=== PATIENT | female | born 1975 | race Caucasian/White ===

== ENCOUNTER 2018-08-13 13:05 | Emergency (ER) | payer MEDICAID ==
[~2018-08-13] VITALS: Ht 167.6 cm; Wt 78.1 kg
[~2018-08-13 13:05] MED LIST: ACID1TAB7 PO; AMPI500C2 PO; CHLO25CA9 PO; DIAZ2TAB PO; FOLI-17 PO; LANS1COM3 PO; LORA-446 PO; LORA2TAB99 PO; MAGN400T7 PO; METR500T PO; MORP30TA3 PO; MULT-484 PO; OMEP-110 PO; OXYC5TAB3 PO; PANT40TA3 PO; POLY17PO5 PO; SUCR1ORA11 PO; THIA100T67 PO; TOPI25TA32 PO; TRAZ50TA66 PO; ZIPR20CA2 PO
--- NOTE | 2018-08-13 13:36 | NUR ---
LABS - US DELAY
[2018-08-13 13:56] LABS: MEAN CORPUSCULAR HEMOGLOBIN 30.6 pg (27.0-34.8); MEAN CORPUSCULAR HGB CONC 33.4 g/dL (32.4-35.8); MEAN CORPUSCULAR VOLUME 91.4 fL (80-100); MEAN PLATELET VOLUME 8.3 fL (7.4-10.4); PLATELET COUNT 276 x10^3/uL (130-400); RED BLOOD COUNT 4.42 x10^6/uL (3.82-5.3); RED CELL DISTRIBUTION WIDTH 22.3 % (9.6-15.2)
[2018-08-13 14:06] LABS: ALBUMIN 3.5 g/dL (3.4-5.0); ANION GAP 11 mmol/L (5-15); CALCIUM 8.8 mg/dL (8.5-10.1); CHLORIDE 111 mmol/L (98-107)
[2018-08-13 14:09] LABS: ALANINE AMINOTRANSFERASE 24 U/L (12-78); ALKALINE PHOSPHATASE 85 U/L (45-117); BILIRUBIN,TOTAL 0.6 mg/dL (0.2-1.0); CREATININE 0.83 mg/dL (0.55-1.02); TOTAL PROTEIN 7.9 g/dL (6.4-8.2)
--- NOTE | 2018-08-13 14:18 | NUR ---
FROM LOBBY TO ROOM AT THIS TIME
[2018-08-13 14:29] LABS: MD YES
[2018-08-13 14:31] LABS: BASOS% (MANUAL) 2 % (0-1); LYMPH#(MANUAL) 1.43 x10^3/uL (1-3.4); LYMPHS% (MANUAL) 28 % (22-44); MONOS#(MANUAL) 0.26 x10^3/uL (0.3-2.7); MONOS% (MANUAL) 5 % (2-9); SEG#(MANUAL) 3.32 x10^3/uL (1.8-6.8); SEGS% (MANUAL) 65 % (42-75)
[2018-08-13 14:33] LABS: ANISOCYTOSIS 1+
[2018-08-13 14:34] LABS: <PLATELET ESTIMATE> ADEQUATE; <PLT MORPHOLOGY> NORMAL PLT MORPH
--- NOTE | 2018-08-13 14:35 | NUR ---
FIRST CONTANCT WITH PT: Pt aware of need of urine sample. Pt unable to provide at this time. Pt c/o RUQ and epigastric pain. Pt states her last drink was 2 days ago and she "sees shadows that might not be there" Pt guarding abdomen and resting on gurney. Pt connected to all monitors. EDPA aware.
[2018-08-13] MEDS ORDERED: KETOROLAC 30 MG/1 ML IVPush ONE (15:00)
[2018-08-13] MEDS ORDERED: LORazepam 2 MG/ML, 1ML IVPush ONE (15:00)
[2018-08-13] MEDS ORDERED: ONDANSETRON 2MG/ML, 2ML IVPush ONE (15:00)
[2018-08-13] MEDS ORDERED: FAMOTIDINE 20 MG/2 ML IVP ONE (15:00)
[2018-08-13] MEDS ORDERED: LORazepam 2 MG/ML, 1ML ONE (15:11)
[2018-08-13] MEDS ORDERED: ONDANSETRON 2MG/ML, 2ML ONE (15:11)
[2018-08-13] MEDS ORDERED: FAMOTIDINE 20 MG/2 ML ONE (15:11)
[2018-08-13] MEDS ORDERED: KETOROLAC 30 MG/1 ML ONE (15:11)
--- NOTE | 2018-08-13 15:40 | NUR ---
Provided medications per EMAR. Pt requesting food and water. Pt aware of need of urine sample for UA. Pt requesting water in order to pee.
[2018-08-13] MEDS ORDERED: SODIUM CHLORIDE FLUSH 10ML SYR IVF ONE (16:00)
--- NOTE | 2018-08-13 16:36 | NUR ---
Pt sleeping on gurney. ANGEL. Pt unable to provide urine sample.
[2018-08-13 17:09] LABS: HCG UR SG 1.028 (1.003-1.030); MICROSCOPIC NOT IND
[2018-08-13 17:14] LABS: CULTURE INDICATED? NO
--- NOTE | 2018-08-13 19:06 | NUR ---
Patient given discharge instructions and they have confirmed that they understand the instructions. Patient ambulatory with steady gait. Pt left with all personal belongings, discharge paperwork, and prescription.
[2018-08-13 19:07] VITALS: BP 125/68
== END 2018-08-13 19:12 | disposition home or self-care (01) ==
LOC: ED 18:34
DX: K85.20 Alcohol induced acute pancreatitis without necrosis or infection (principal); F10.229 Alcohol dependence with intoxication, unspecified
CPT/HCPCS: 36415; 76700; 80053; 80307; 81003; 81025; 83690; 85025; 96374; 96375; 99284; J1885; J2060; J2405; J3490

== ENCOUNTER 2019-01-23 16:00 | Inpatient (IN) | payer MEDICAID ==
[~2019-01-23] VITALS: Ht 167.6 cm; Wt 70.0 kg
--- NOTE | 2019-01-23 16:10 | NUR ---
gum worker called, message left.
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
[2019-01-23] MEDS ORDERED: SODIUM CHLORIDE FLUSH 10ML SYR IVF ONE (16:30)
[2019-01-23] MEDS ORDERED: SODIUM CHLORIDE 0.9% 1,000ML IVBOLUS ONE ×2 (16:30→20:00)
[2019-01-23] MEDS ORDERED: LORazepam 2 MG/ML, 1ML IVPush ONE ×2 (16:30→20:00)
[2019-01-23] MEDS ORDERED: ONDANSETRON 2MG/ML, 2ML IVPush ONE (16:30)
[2019-01-23] MEDS ORDERED: MORPHINE SULFATE 4 MG/ML, 1ML ONE (16:32)
[2019-01-23] MEDS ORDERED: LORazepam 2 MG/ML, 1ML ONE ×2 (16:32→19:34)
[2019-01-23] MEDS: MORPHINE SULFATE 4 MG/ML, 1ML IVPush PRN (16:35)
--- NOTE | 2019-01-23 17:07 | NUR ---
Patient medicated as ordered and documented for 10/10 left upper quadrant abdominal pain. Right wrist IV by EMS was infiltrated on assessment and discontinued with catheter tip intact. Supplemental oxygen applied via nasal cannula @ 2 LPM after pain medication administration. nutrition services worker at bedside.
--- NOTE | 2019-01-23 17:20 | NUR ---
RECEIVED REPORT FROM CHANDRA KAUR AT BEDSIDE.
[2019-01-23 17:31] LABS: ALANINE AMINOTRANSFERASE 25 U/L (12-78); ALBUMIN 3.8 g/dL (3.4-5.0); ANION GAP 14 mmol/L (5-15); CALCIUM 8.5 mg/dL (8.5-10.1); CHLORIDE 104 mmol/L (98-107); CREATININE 0.76 mg/dL (0.55-1.02)
--- NOTE | 2019-01-23 17:35 | NUR ---
NATASHA AT BEDSIDE. PT C/O NAUSEA STILL AFTER ATIVAN. WILL NOTIFY DR. CISNEROS.
[2019-01-23 17:36] LABS: ALKALINE PHOSPHATASE 84 U/L (45-117); BILIRUBIN,TOTAL 0.4 mg/dL (0.2-1.0); TOTAL PROTEIN 7.8 g/dL (6.4-8.2)
[2019-01-23 17:39] LABS: BASOPHILS # (AUTO) 0.02 x10^3/uL (0-0.1); BASOPHILS % (AUTO) 0 % (0-1); EOSINOPHILS % (AUTO) 0 % (1-7); LYMPHOCYTES # (AUTO) 0.93 x10^3/uL (1-3.4); LYMPHOCYTES % (AUTO) 10 % (22-44); MD NO; MEAN CORPUSCULAR HEMOGLOBIN 32.1 pg (27.0-34.8); MEAN CORPUSCULAR HGB CONC 33.4 g/dL (32.4-35.8); MEAN PLATELET VOLUME 7.4 fL (7.4-10.4); MONOCYTES # (AUTO) 0.53 x10^3/uL (0.2-0.8); MONOCYTES % (AUTO) 6 % (2-9); NEUTROPHILS # (AUTO) 7.69 x10^3/uL (1.8-6.8); NEUTROPHILS % (AUTO) 84 % (42-75); PLATELET COUNT 519 x10^3/uL (130-400); RED BLOOD COUNT 4.18 x10^6/uL (3.82-5.3); RED CELL DISTRIBUTION WIDTH 19.5 % (9.6-15.2)
--- NOTE | 2019-01-23 17:59 | NUR ---
PT TO CT.
--- NOTE | 2019-01-23 18:20 | NUR ---
REPORT TO BRYANNA TORRES FOR LUNCH BREAK.
[2019-01-23] MEDS ORDERED: PROMETHAZINE 25 MG/ML, 1ML IM ONE (18:30)
[2019-01-23] MEDS ORDERED: PROMETHAZINE 25 MG/ML, 1ML ONE (18:40)
--- NOTE | 2019-01-23 19:20 | NUR ---
PT TO RESTROOM WITH STEADY GAIT FOR UA.
[2019-01-23] MEDS ORDERED: KETOROLAC 30 MG/1 ML IVPush ONE (19:30)
[2019-01-23] MEDS ORDERED: KETOROLAC 30 MG/1 ML ONE (19:33)
--- NOTE | 2019-01-23 19:42 | NUR ---
PT 'S HR INTO THE 1300S AFTER RESTROOM AND C/O MORE PAIN. DR. CISNEROS AWARE AND PT MEDICATED ORDERED.
[2019-01-23 19:59] LABS: MICROSCOPIC INDICATED
[2019-01-23 20:03] LABS: CULTURE INDICATED? YES
--- NOTE | 2019-01-23 20:35 | NUR ---
PT TO BE ADMITTED FOR PANCREATITIS, ALCOHOL WITHDRAWAL. VSS.
[2019-01-23 21:22] VITALS: BP 151/95
[2019-01-23] MEDS ORDERED: BISACODYL 10 MG SUPP PR PRN (21:30)
[2019-01-23] MEDS ORDERED: ACETAMINOPHEN 325 MG TABLET PO PRN (21:30)
[2019-01-23] MEDS ORDERED: ONDANSETRON 2MG/ML, 2ML IVPush PRN (21:30)
[2019-01-23] MEDS: morphine SULFATE 10 MG/ML, 1ML IVPush PRN (21:52)
[2019-01-23] MEDS: LACTATED RINGERS 1,000 ML IV SCH (22:15)
[2019-01-24] MEDS: LORazepam 2 MG/ML, 1ML IVPush PRN ×5 (00:06→22:12)
[2019-01-24] MEDS: MORPHINE SULFATE 4 MG/ML, 1ML IVPush PRN (01:49)
[2019-01-24 01:58] VITALS: BP 139/89
[2019-01-24] MEDS: LACTATED RINGERS 1,000 ML IV SCH (04:39)
[2019-01-24] MEDS: morphine SULFATE 10 MG/ML, 1ML IVPush PRN ×6 (04:41→23:09)
[2019-01-24 05:53] LABS: BASOPHILS # (AUTO) 0.02 x10^3/uL (0-0.1); BASOPHILS % (AUTO) 0 % (0-1); EOSINOPHILS # (AUTO) 0.01 x10^3/uL (0-0.4); EOSINOPHILS % (AUTO) 0 % (1-7); LYMPHOCYTES # (AUTO) 0.63 x10^3/uL (1-3.4); LYMPHOCYTES % (AUTO) 9 % (22-44); MD NO; MEAN CORPUSCULAR HEMOGLOBIN 31.3 pg (27.0-34.8); MEAN CORPUSCULAR HGB CONC 32.9 g/dL (32.4-35.8); MEAN CORPUSCULAR VOLUME 95.1 fL (80-100); MEAN PLATELET VOLUME 6.6 fL (7.4-10.4); MONOCYTES # (AUTO) 0.39 x10^3/uL (0.2-0.8); MONOCYTES % (AUTO) 5 % (2-9); NEUTROPHILS # (AUTO) 6.38 x10^3/uL (1.8-6.8); NEUTROPHILS % (AUTO) 86 % (42-75); PLATELET COUNT 345 x10^3/uL (130-400); RED BLOOD COUNT 3.51 x10^6/uL (3.82-5.3); RED CELL DISTRIBUTION WIDTH 19.5 % (9.6-15.2)
[2019-01-24 06:04] LABS: ALANINE AMINOTRANSFERASE 27 U/L (12-78); ALBUMIN 3.1 g/dL (3.4-5.0); ANION GAP 12 mmol/L (5-15); CALCIUM 7.8 mg/dL (8.5-10.1); CHLORIDE 111 mmol/L (98-107); CREATININE 0.67 mg/dL (0.55-1.02)
[2019-01-24 06:07] LABS: ALKALINE PHOSPHATASE 74 U/L (45-117); BILIRUBIN,TOTAL 0.6 mg/dL (0.2-1.0); TOTAL PROTEIN 6.2 g/dL (6.4-8.2)
[2019-01-24] MEDS: D5%-0.45% NACL 1,000 ML IV SCH ×2 (07:30→17:17)
[2019-01-24] MEDS: THIAMINE 100MG TABLET PO SCH ×2 (07:48→19:57)
[2019-01-24] MEDS: FOLIC ACID 1 MG TABLET PO SCH (07:48)
[2019-01-24] MEDS: MULTIVITAMINS/MINERALS TABLET PO SCH (07:48)
[2019-01-24 08:47] VITALS: BP 144/97
[2019-01-24] MEDS: DIAZEPAM 5 MG TABLET PO PRN ×2 (13:05→19:57)
[2019-01-24 19:18] VITALS: BP 142/91
[2019-01-24] MEDS: ENOXAPARIN 40 MG/0.4 ML SQ SCH (19:57)
[2019-01-25] MEDS: morphine SULFATE 10 MG/ML, 1ML IVPush PRN ×6 (02:00→22:08)
[2019-01-25] MEDS: D5%-0.45% NACL 1,000 ML IV SCH ×3 (02:00→19:52)
[2019-01-25 02:15] VITALS: BP 135/88
[2019-01-25] MEDS: LORazepam 2 MG/ML, 1ML IVPush PRN ×2 (04:39→12:28)
[2019-01-25 05:08] LABS: BASOPHILS # (AUTO) 0.01 x10^3/uL (0-0.1); BASOPHILS % (AUTO) 0 % (0-1); EOSINOPHILS # (AUTO) 0.06 x10^3/uL (0-0.4); EOSINOPHILS % (AUTO) 1 % (1-7); LYMPHOCYTES # (AUTO) 0.97 x10^3/uL (1-3.4); LYMPHOCYTES % (AUTO) 21 % (22-44); MD NO; MEAN CORPUSCULAR HGB CONC 33.2 g/dL (32.4-35.8); MEAN CORPUSCULAR VOLUME 96.5 fL (80-100); MEAN PLATELET VOLUME 7.1 fL (7.4-10.4); MONOCYTES # (AUTO) 0.17 x10^3/uL (0.2-0.8); MONOCYTES % (AUTO) 4 % (2-9); NEUTROPHILS # (AUTO) 3.38 x10^3/uL (1.8-6.8); NEUTROPHILS % (AUTO) 74 % (42-75); PLATELET COUNT 308 x10^3/uL (130-400); RED BLOOD COUNT 3.94 x10^6/uL (3.82-5.3); RED CELL DISTRIBUTION WIDTH 18.6 % (9.6-15.2)
[2019-01-25 05:19] LABS: ALANINE AMINOTRANSFERASE 27 U/L (12-78); ALBUMIN 2.7 g/dL (3.4-5.0); ANION GAP 9 mmol/L (5-15); CALCIUM 7.6 mg/dL (8.5-10.1); CHLORIDE 102 mmol/L (98-107); CREATININE 0.58 mg/dL (0.55-1.02)
[2019-01-25 05:21] LABS: ALKALINE PHOSPHATASE 78 U/L (45-117); BILIRUBIN,TOTAL 0.9 mg/dL (0.2-1.0); TOTAL PROTEIN 6.2 g/dL (6.4-8.2)
[2019-01-25] MEDS ORDERED: POTASSIUM CHLORIDE 20 MEQ TAB.ER.PRT PO ONE (07:30)
[2019-01-25 07:40] VITALS: BP 128/88
[2019-01-25] MEDS: THIAMINE 100MG TABLET PO SCH ×2 (08:55→19:53)
[2019-01-25] MEDS: DIAZEPAM 5 MG TABLET PO PRN ×2 (08:55→17:15)
[2019-01-25] MEDS: FOLIC ACID 1 MG TABLET PO SCH (08:55)
[2019-01-25] MEDS: MULTIVITAMINS/MINERALS TABLET PO SCH (08:55)
[2019-01-25] MEDS ORDERED: MAGNESIUM SULFATE PMX 2GM/50ML 50 ML IV ONE (10:30)
[2019-01-25 12:25] VITALS: BP 134/94
[2019-01-25] MEDS: OXYcodone IR 5MG TABLET PO PRN ×2 (13:59→19:55)
[2019-01-25 19:01] VITALS: BP 134/91
[2019-01-25] MEDS: ENOXAPARIN 40 MG/0.4 ML SQ SCH (19:53)
[2019-01-26 01:31] VITALS: BP 136/94
[2019-01-26] MEDS: DIAZEPAM 5 MG TABLET PO PRN (01:51)
[2019-01-26] MEDS: morphine SULFATE 10 MG/ML, 1ML IVPush PRN ×6 (01:54→22:12)
[2019-01-26] MEDS: D5%-0.45% NACL 1,000 ML IV SCH (05:11)
[2019-01-26 06:33] LABS: BASOPHILS # (AUTO) 0.01 x10^3/uL (0-0.1); BASOPHILS % (AUTO) 0 % (0-1); EOSINOPHILS # (AUTO) 0.09 x10^3/uL (0-0.4); EOSINOPHILS % (AUTO) 3 % (1-7); LYMPHOCYTES # (AUTO) 0.72 x10^3/uL (1-3.4); LYMPHOCYTES % (AUTO) 24 % (22-44); MD NO; MEAN CORPUSCULAR HGB CONC 33.4 g/dL (32.4-35.8); MEAN PLATELET VOLUME 7.7 fL (7.4-10.4); MONOCYTES # (AUTO) 0.09 x10^3/uL (0.2-0.8); MONOCYTES % (AUTO) 3 % (2-9); NEUTROPHILS # (AUTO) 2.14 x10^3/uL (1.8-6.8); NEUTROPHILS % (AUTO) 70 % (42-75); PLATELET COUNT 259 x10^3/uL (130-400); RED BLOOD COUNT 4.01 x10^6/uL (3.82-5.3); RED CELL DISTRIBUTION WIDTH 17.9 % (9.6-15.2)
[2019-01-26 06:46] LABS: ALBUMIN 2.8 g/dL (3.4-5.0); ANION GAP 8 mmol/L (5-15); CALCIUM 8.2 mg/dL (8.5-10.1); CHLORIDE 103 mmol/L (98-107)
[2019-01-26 06:50] LABS: ALANINE AMINOTRANSFERASE 106 U/L (12-78); ALKALINE PHOSPHATASE 155 U/L (45-117); BILIRUBIN,TOTAL 0.7 mg/dL (0.2-1.0); CREATININE 0.52 mg/dL (0.55-1.02); TOTAL PROTEIN 6.1 g/dL (6.4-8.2)
[2019-01-26 07:57] VITALS: BP 144/96
[2019-01-26] MEDS ORDERED: MAGNESIUM SULFATE PMX 2GM/50ML 50 ML IV ONE (08:00)
[2019-01-26] MEDS: THIAMINE 100MG TABLET PO SCH ×2 (09:33→20:02)
[2019-01-26] MEDS: MULTIVITAMINS/MINERALS TABLET PO SCH (09:33)
[2019-01-26] MEDS: POTASSIUM CHLORIDE 20 MEQ TAB.ER.PRT PO SCH ×3 (09:33→17:48)
[2019-01-26] MEDS: MAGNESIUM OXIDE 400 MG TABLET PO SCH (09:33)
[2019-01-26] MEDS: FOLIC ACID 1 MG TABLET PO SCH (09:33)
[2019-01-26 10:45] LABS: MICROSCOPIC AUTO
[2019-01-26 10:47] LABS: CULTURE INDICATED? NO
[2019-01-26] MEDS: LORazepam 2 MG/ML, 1ML IVPush PRN ×2 (12:45→20:02)
[2019-01-26 13:10] VITALS: BP 137/95
[2019-01-26 15:23] LABS: MICROSCOPIC INDICATED
[2019-01-26 15:25] LABS: CULTURE INDICATED? NO
[2019-01-26 19:19] VITALS: BP 139/92
[2019-01-26] MEDS: CEFTRIAXONE PMX 1GM/50ML 50 ML IV SCH (20:02)
[2019-01-26] MEDS: ENOXAPARIN 40 MG/0.4 ML SQ SCH (20:02)
[2019-01-27 01:18] VITALS: BP 117/82
[2019-01-27] MEDS: morphine SULFATE 10 MG/ML, 1ML IVPush PRN ×4 (02:03→21:35)
[2019-01-27] MEDS: OXYcodone IR 5MG TABLET PO PRN ×2 (03:40→16:38)
[2019-01-27 05:27] LABS: BASOPHILS # (AUTO) 0.04 x10^3/uL (0-0.1); BASOPHILS % (AUTO) 1 % (0-1); EOSINOPHILS # (AUTO) 0.08 x10^3/uL (0-0.4); EOSINOPHILS % (AUTO) 2 % (1-7); LYMPHOCYTES # (AUTO) 1.04 x10^3/uL (1-3.4); LYMPHOCYTES % (AUTO) 27 % (22-44); MD NO; MEAN CORPUSCULAR HEMOGLOBIN 31.4 pg (27.0-34.8); MEAN CORPUSCULAR HGB CONC 33.1 g/dL (32.4-35.8); MEAN PLATELET VOLUME 7.9 fL (7.4-10.4); MONOCYTES # (AUTO) 0.26 x10^3/uL (0.2-0.8); MONOCYTES % (AUTO) 7 % (2-9); NEUTROPHILS % (AUTO) 63 % (42-75); PLATELET COUNT 257 x10^3/uL (130-400); RED BLOOD COUNT 4.11 x10^6/uL (3.82-5.3); RED CELL DISTRIBUTION WIDTH 18.1 % (9.6-15.2)
[2019-01-27 05:39] LABS: ALBUMIN 2.9 g/dL (3.4-5.0); CHLORIDE 104 mmol/L (98-107)
[2019-01-27 05:43] LABS: ALANINE AMINOTRANSFERASE 76 U/L (12-78); ALKALINE PHOSPHATASE 139 U/L (45-117); ANION GAP 10 mmol/L (5-15); BILIRUBIN,TOTAL 0.4 mg/dL (0.2-1.0); CALCIUM 8.8 mg/dL (8.5-10.1); CREATINE KINASE, TOTAL 43 U/L (26-192); CREATININE 0.57 mg/dL (0.55-1.02); TOTAL PROTEIN 6.7 g/dL (6.4-8.2)
[2019-01-27 07:57] VITALS: BP 128/92
[2019-01-27] MEDS: THIAMINE 100MG TABLET PO SCH ×2 (08:36→20:42)
[2019-01-27] MEDS: MULTIVITAMINS/MINERALS TABLET PO SCH (08:36)
[2019-01-27] MEDS: FOLIC ACID 1 MG TABLET PO SCH (08:36)
[2019-01-27] MEDS: MAGNESIUM OXIDE 400 MG TABLET PO SCH (08:36)
[2019-01-27] MEDS: LORazepam 2 MG/ML, 1ML IVPush PRN ×2 (12:05→19:35)
[2019-01-27 13:09] VITALS: BP 131/89
[2019-01-27 17:28] LABS: MICROSCOPIC INDICATED
[2019-01-27 17:36] LABS: CULTURE INDICATED? NO
[2019-01-27 18:53] VITALS: BP 119/75
[2019-01-27] MEDS ORDERED: OMNIPAQUE 350 MG/ML, 100ML BOTTLE ONE (20:07)
[2019-01-27] MEDS: CEFTRIAXONE PMX 1GM/50ML 50 ML IV SCH (20:42)
[2019-01-27] MEDS: ENOXAPARIN 40 MG/0.4 ML SQ SCH (20:42)
[2019-01-28 01:50] VITALS: BP 112/68
[2019-01-28] MEDS: morphine SULFATE 10 MG/ML, 1ML IVPush PRN (05:22)
[2019-01-28 05:53] LABS: BASOPHILS # (AUTO) 0.02 x10^3/uL (0-0.1); BASOPHILS % (AUTO) 1 % (0-1); EOSINOPHILS # (AUTO) 0.09 x10^3/uL (0-0.4); EOSINOPHILS % (AUTO) 2 % (1-7); LYMPHOCYTES # (AUTO) 1.19 x10^3/uL (1-3.4); LYMPHOCYTES % (AUTO) 31 % (22-44); MD NO; MEAN CORPUSCULAR HEMOGLOBIN 31.9 pg (27.0-34.8); MEAN CORPUSCULAR VOLUME 96.8 fL (80-100); MEAN PLATELET VOLUME 9.1 fL (7.4-10.4); MONOCYTES % (AUTO) 8 % (2-9); NEUTROPHILS % (AUTO) 58 % (42-75); PLATELET COUNT 224 x10^3/uL (130-400); RED BLOOD COUNT 4.24 x10^6/uL (3.82-5.3); RED CELL DISTRIBUTION WIDTH 18.5 % (9.6-15.2)
[2019-01-28 06:07] LABS: CHLORIDE 104 mmol/L (98-107)
[2019-01-28 06:14] LABS: ALANINE AMINOTRANSFERASE 60 U/L (12-78); ALBUMIN 3.1 g/dL (3.4-5.0); ALKALINE PHOSPHATASE 133 U/L (45-117); ANION GAP 10 mmol/L (5-15); BILIRUBIN,TOTAL 0.5 mg/dL (0.2-1.0); CALCIUM 9.2 mg/dL (8.5-10.1); CREATININE 0.73 mg/dL (0.55-1.02)
[2019-01-28] MEDS: LORazepam 2 MG/ML, 1ML IVPush PRN (07:25)
[2019-01-28 08:27] VITALS: BP 101/69
[2019-01-28] MEDS: MAGNESIUM OXIDE 400 MG TABLET PO SCH (10:39)
[2019-01-28] MEDS: FOLIC ACID 1 MG TABLET PO SCH (10:39)
[2019-01-28] MEDS: MULTIVITAMINS/MINERALS TABLET PO SCH (10:39)
[2019-01-28] MEDS: THIAMINE 100MG TABLET PO SCH (10:39)
[2019-01-28] MEDS: OXYcodone IR 5MG TABLET PO PRN (10:41)
[2019-01-28 15:39] VITALS: BP 102/70
[2019-01-28] MEDS ORDERED: CEFD300C37 PO (17:49)
[2019-01-28] MEDS ORDERED: MAGN400T50 PO (17:49)
[2019-01-28] MEDS ORDERED: THIA100T67 PO (17:49)
[2019-01-28] MEDS ORDERED: FOLI-17 PO (17:49)
[2019-01-28] MEDS ORDERED: MULT-484 PO (17:49)
== END 2019-01-28 20:50 | disposition home or self-care (01) | DRG 432 ==
LOC: ED 21:12 → EDIP 21:20 → 3NE 21:38
PROVIDERS: ADMIT Internal Medicine; ATTEND Internal Medicine
PROC: 0T9B70Z Drainage of Bladder with Drainage Device, Via Natural or Artificial Opening (ICD-10-PCS; principal; 2019-01-27)
DX: K70.10 Alcoholic hepatitis without ascites (principal); K85.20 Alcohol induced acute pancreatitis without necrosis or infection; F10.239 Alcohol dependence with withdrawal, unspecified; G93.40 Encephalopathy, unspecified; N11.9 Chronic tubulo-interstitial nephritis, unspecified; K76.0 Fatty (change of) liver, not elsewhere classified; K44.9 Diaphragmatic hernia without obstruction or gangrene; F32.9 Major depressive disorder, single episode, unspecified; F17.210 Nicotine dependence, cigarettes, uncomplicated; N27.0 Small kidney, unilateral; E87.6 Hypokalemia; E87.5 Hyperkalemia; E83.42 Hypomagnesemia; F41.9 Anxiety disorder, unspecified; Z91.19 Patient's noncompliance with other medical treatment and regimen; Z91.14 Patient's other noncompliance with medication regimen; Z88.2 Allergy status to sulfonamides
CPT/HCPCS: 36415; 74176; 74177; 80053; 81001; 82150; 82550; 82962; 83690; 83735; 84100; 84550; 84703; 85025; 87086; 93005; 95819; 96361; 96372; 96374; 96375; 99285; G0378; J0696; J1650; J1885; J2405; J2550; Q9967; J2060; J2270; J3475; J7030; J7120

== ENCOUNTER 2019-02-26 18:45 | Emergency (ER) | payer MEDICAID ==
[~2019-02-26] VITALS: Ht 157.5 cm; Wt 78.5 kg
[2019-02-26 23:44] VITALS: BP 108/63
== END 2019-02-27 00:21 | disposition home or self-care (01) ==
LOC: ED 21:57
DX: K29.20 Alcoholic gastritis without bleeding (principal); F10.10 Alcohol abuse, uncomplicated; F10.120 Alcohol abuse with intoxication, uncomplicated; Z72.9 Problem related to lifestyle, unspecified; G89.29 Other chronic pain
CPT/HCPCS: 36415; 80053; 80307; 81001; 81025; 83690; 84703; 85025; 87086; 99283

== ENCOUNTER 2019-03-02 16:33 | Inpatient (IN) | payer MEDICAID ==
[~2019-03-02] VITALS: Ht 157.5 cm; Wt 77.8 kg
[2019-03-08 13:44] VITALS: BP 102/69
== END 2019-03-08 15:11 | disposition home or self-care (01) | DRG 392 ==
LOC: ED 17:40 → EDIP 20:53 → 4EST 22:18
PROVIDERS: ADMIT Internal Medicine; ATTEND Internal Medicine
PROC: 0DB98ZX Excision of Duodenum, Via Natural or Artificial Opening Endoscopic, Diagnostic (ICD-10-PCS; principal; 2019-03-06)
PROC: 0DB68ZX Excision of Stomach, Via Natural or Artificial Opening Endoscopic, Diagnostic (ICD-10-PCS; 2019-03-06)
DX: K29.20 Alcoholic gastritis without bleeding (principal); E87.0 Hyperosmolality and hypernatremia; E87.2 Acidosis; F10.239 Alcohol dependence with withdrawal, unspecified; D64.9 Anemia, unspecified; E83.42 Hypomagnesemia; E87.6 Hypokalemia; F10.229 Alcohol dependence with intoxication, unspecified; G43.909 Migraine, unspecified, not intractable, without status migrainosus; F32.9 Major depressive disorder, single episode, unspecified; E78.5 Hyperlipidemia, unspecified; K70.10 Alcoholic hepatitis without ascites; Y90.8 Blood alcohol level of 240 mg/100 ml or more; Z87.11 Personal history of peptic ulcer disease; Z87.891 Personal history of nicotine dependence; Z88.2 Allergy status to sulfonamides
CPT/HCPCS: 36415; 96365; 96375; 99285; J3490; 74177; 80048; 80053; 80307; 81003; 81025; 82010; 82800; 83690; 83735; 84100; 84703; 85014; 85018; 85025; 86850; 86900; 88305; G0378; J2405; J2704; J3010; J3411; J3475; J3480; J7070; Q9967; C9113; J2060; J2270; J7030

== ENCOUNTER 2019-09-09 15:47 | Emergency (ER) | payer MEDICAID ==
[~2019-09-09] VITALS: Ht 167.6 cm; Wt 87.6 kg
[~2019-09-09 15:47] MED LIST changes: +BUSPAR; +CEFD300C37 PO; +MAGN400T50 PO; -MAGN400T7 PO; +MAGN400T9 PO; +MORP-30 PO; -MORP30TA3 PO; +MULT1TAB60 PO; +PANT40TA5 PO; -SUCR1ORA11 PO; +SUCR1ORA14 PO; +SUCR1ORA5 PO; +SUCR1TAB PO; +TOPAMAX; +TRAM50TA2 PO
[2019-09-09 15:56] VITALS: BP 117/93
--- NOTE | 2019-09-09 19:15 | NUR ---
NIL X 1
--- NOTE | 2019-09-09 19:30 | NUR ---
NIL X 2
--- NOTE | 2019-09-09 19:47 | NUR ---
NIL X 3
== END 2019-09-09 20:49 | disposition left against medical advice (07) ==
LOC: ED 20:42
DX: R10.32 Left lower quadrant pain (principal); R11.10 Vomiting, unspecified; Z53.21 Procedure and treatment not carried out due to patient leaving prior to being seen by health care provider